=== PATIENT | female | born 1990 | race American Indian/Alaskan Native ===

== ENCOUNTER 2018-03-16 08:15 | Emergency (ER) | payer OTHER ==
[2018-03-16 08:15] VITALS: BMI 20.7
--- NOTE | 2018-03-16 08:31 | ED PDOC ---
HPI: Female Pain Time Seen by Provider: 03/16/18 08:23 History Per: Patient Onset/Duration Of Symptoms: Days (1) Current Symptoms Are (Timing): Still Present Severity: Mild Pain Scale Rating Of: 2 Quality Of Discomfort: Cramping Additional Complaint(s): Mild lower abd cramping assoc with vaginal spotting since this AM. LMP 13 weeks ago. Abnormal Vaginal Bleeding: Yes Past Medical History Vital Signs: Last Vital Signs Temp 99.3 F 03/16/18 08:19 Pulse 120 H 03/16/18 08:19 Resp 20 03/16/18 08:19 BP 120/81 03/16/18 08:19 Pulse Ox 100 03/16/18 08:19 - Medical History PMH: No Chronic Diseases - Family History Family History: States: Unknown Family Hx - Immunization History Hx Tetanus Toxoid Vaccination: No Hx Influenza Vaccination: No Hx Pneumococcal Vaccination: No - Home Medications Home Medications: Ambulatory Orders Medication Instructions Recorded No Known Home Med 09/19/15 - Allergies Allergies/Adverse Reactions: Allergies Allergy/AdvReac Type Severity Reaction Status Date / Time Penicillins Allergy URTICARIA Verified 03/16/18 08:40 Review of Systems Gastrointestinal: Positive for: Abdominal Pain Genitourinary Female: Positive for: Vaginal Bleeding. Negative for: Dysuria, Frequency Physical Exam - Physical Exam Appears: Positive for: Non-toxic, No Acute Distress Gastrointestinal/Abdominal: Positive for: Bowel Sounds, Soft, Tenderness Pelvic Exam: Positive for: External Exam Normal, Blood (scant, cervix closed). Negative for: Tender Adnexa, Tender Uterus - Laboratory Results Result Diagrams: 03/16/18 09:00 - ECG O2 Sat by Pulse Oximetry: 100 Disposition - Clinical Impression Clinical Impression: Threatened miscarriage - Patient ED Disposition Is Patient to be Admitted: No Counseled Patient/Family Regarding: Studies Performed, Diagnosis, Need For Followup - Disposition [facility] Disposition: Routine/Home Disposition Time: 11:03 Condition: FAIR Instructions: Threatened Miscarriage
[2018-03-16 09:18] LABS: BASO % 0.3 % (0.0-2.0); EOS % 0.6 % (0.0-4.0); HEMOGLOBIN 11.9 g/dL (12.0-16.0); LYMPH # 1.6 K/uL (1.0-4.3); LYMPH % 21.8 % (20.0-40.0); MEAN CELL VOLUME 89.3 fl (81.0-99.0); MEAN CORPUSCULAR HEMOGLOBIN 30.6 pg (27.0-31.0); MEAN CORPUSCULAR HGB CONC 34.2 g/dL (33.0-37.0); MEAN PLATELET VOLUME 7.1 fl (7.2-11.7); MONO # 0.6 K/uL (0.0-0.8); MONO % 7.8 % (0.0-10.0); NEUT # 5.1 K/uL (1.8-7.0); NEUT % 69.5 % (50.0-75.0); RBC 3.9 Mil/uL (3.80-5.20); RED CELL DISTRIBUTION WIDTH 15.7 % (11.5-14.5); WHITE BLOOD COUNT 7.4 K/uL (4.8-10.8)
[2018-03-16 11:33] VITALS: BP 125/87; PULSE 99; RESP 18; TEMP 98.6; O2SAT 98
--- NOTE | 2018-03-16 11:38 | US ---
Date of service: 03/16/2018 PROCEDURE: Obstetrical ultrasound examination HISTORY: r/o ectopic COMPARISON: Not available TECHNIQUE: Transabdominal FINDINGS: Ultrasound examination demonstrates a single live intrauterine gestation. The heart rate is 165 beats per minute. A grossly normal quantity of amniotic fluid is visualized. The fetus is in transverse presentation at the time of this examination. An anterior placenta is identified. There are 2 irregular heterogeneously hypoechoic lesions within the placenta, most likely representing venous lakes. These measure approximately 1.4 x 1.5 x 2.4 cm and 1.6 x 2.0 x 2.4 cm. Differential diagnosis includes [place] when GMS. These appear avascular on Doppler interrogation. biometry yields a gestational age of 15 weeks 0 days. DIANNA by ultrasound is 09/07/2018. The cervix is closed and measures 5.0 cm in length. IMPRESSION: Single live intrauterine gestation of approximately 15 weeks 0 days. anatomic evaluation is not performed at this time. Anterior placenta. Two complex likely cystic spaces within the placenta are noted, possibly venous lakes. Follow-up advised. Cervix closed. heart rate 165 beats per minute. No additional abnormality.
== END 2018-03-16 11:18 | disposition home or self-care (01) ==
LOC: H.ER 08:15
DX: O20.0 Threatened abortion (principal); Z3A.15 15 weeks gestation of pregnancy; Z88.0 Allergy status to penicillin

== ENCOUNTER 2018-09-04 08:05 | Emergency (ER) | payer OTHER ==
[2018-09-04 08:26] VITALS: BMI 31.1
[2018-09-04 16:00] VITALS: BP 102/70; PULSE 109; RESP 17; TEMP 98.5; O2SAT 98
== END 2018-09-04 10:30 | disposition home or self-care (01) ==
LOC: H.EROB2 08:05 → H.EROB 08:25 → H.EROB2 10:30
DX: O26.93 Pregnancy related conditions, unspecified, third trimester (principal); R10.2 Pelvic and perineal pain; O26.853 Spotting complicating pregnancy, third trimester; Z3A.38 38 weeks gestation of pregnancy

== ENCOUNTER 2018-09-04 20:38 | Emergency (ER) | payer OTHER ==
[2018-09-04 22:03] VITALS: BMI 30.7
[2018-09-05 03:08] VITALS: BP 132/77; PULSE 106; RESP 16; TEMP 98.1; O2SAT 99
--- NOTE | 2018-09-05 08:58 | OBDCSUM ---
Datetime: 09/04/2018 22:40 Discharged to, Provider: Home Follow up at, Provider: [facility] Disch Instr Activity: Normal activity Disch Instr Diet: Regular Discharge Diagnosis, Provider: False Labor - Undelivered Discharge Time: 09/04/2018 22:40 Follow up [facility], [facility] Referrals: None Datetime: 09/04/2018 10:20 Discharge Diagnosis, Provider: False Labor - Undelivered
--- NOTE | 2018-09-05 08:59 | OBHP ---
Datetime: 09/04/2018 21:45 IP Admit Plan: Observation/Evaluation Admit Comment, IP Provider: 28 yo with IUP @ 38+3 weeks presents to [facility] for evaluation of p ainful contractions. She was previously seen earlier today by her primary OBGYN at [facility] and h ere at [facility] where she was found to be closed on SVE and sent home with labor precautions. Deborah armstrong reports that since being discharged her contractions are much more painful and she reports one epis ode of nausea. Denies active vaginal bleeding or gush of fluid. Endorses good movement. Denies headahce, change in vision, chest pain, shortness of breath, vomiting, dysuria, fevers or chills. ROS: negative except for stated above in HPI. PMD:Patient follows at [facility], last seen this morning. OBHx: 1 x SAB @ 3 wks, 2014 PMHx: Hyperthyroidism (Methimazole 10mg weekly- TSH 0.888) PSHx:Right ear keloid removal 2017 Allergies: Penicillin- rash Medications: PNVs; Methimazole 10mg po weekly. SocialHx: Denies ETOH/smoking/drugs Family History: Denies Labs: HIV: negative; AbsAg: negative; GBS: negative; Rubella: Non-reactive; Gc/Cl: negative; RPR: unknown; ABO: A+; Ab: negative; Quantiferon 18 was negative. PE: Patient in bed - uncomfortable during contractions but able to speak through them. Vitally stable Lungs: No respiratory distress Abdomen: Gravid, non-tender to palpation SVE: with sr. vendor management associate- posterior; 1cm, thick cervix, minimal amount of bloody discharge noted on exa m. Extremities: No lower extremity edema. Non-tender calves. Bedside ultrasound this morning- cephalic presentation Assessment: 28 y/o, , with IUP at 38+3 wks based on DIANNA presented to [facility] for evaluation of painful contractions every 5 minutes. - Observation - Contiue EFM for at least 20 minutes. Cat I, reactive, accelerations 15x15, no decelerations - Patient given labor precautions at this time - Patient to follow up with [facility] clinic in 1 week Case seen and discussed with Dr. Sabina Ram PGY1 OB Hospitalist on-call. With PGY1, I saw and examined this pt. Agree with note. Her questions answered. discharge home...MAHNDO Pelvic Type - PN: Adequate Extremities - PN: Normal Abdomen - PN: Normal Back - PN: Normal Breast - PN: Not Done Lungs - PN: Normal Heart - PN: Normal Thyroid - PN: Not Done Neurologic - PN: Not Done HEENT - PN: Not Done General - PN: Normal FHR - Baseline A Provider: 155 Membranes, Provider: Intact IP Hx Assessment: The History has been Reviewed and is Current EGA AdmitDate IP: 38.3 Vital Signs Provider: Reviewed; Within Normal Limits IP Chief Complaint: Uterine contractions; Maternal discomfort NICHD Variability Prov Fetus A: Moderate 6-25bpm FHR Category Provider Fetus A: Category I NICHD Decel Fetus A IP Provider: None Dilatation, Provider: 1 Effacement, Provider: 0 Station, Provider: -3 Genitourinary Exam: Not Done DTRs - PN: Not Done Datetime: 09/04/2018 08:44 IP Adm Impression: Term, intrauterine ; No Active Labor; Intact Membranes Contraction Comments Provider: occ Pool Provider: Negative NICHD Accel Fetus A IP Provider: [id number]
== END 2018-09-04 23:00 | disposition home or self-care (01) ==
LOC: H.EROB2 20:38
DX: O26.93 Pregnancy related conditions, unspecified, third trimester (principal); R10.2 Pelvic and perineal pain; Z3A.38 38 weeks gestation of pregnancy

== ENCOUNTER 2018-09-05 11:31 | Inpatient (IN) | payer OTHER ==
[2018-09-05 13:49] VITALS: BMI 31.2
[2018-09-05] MEDS ORDERED: Oxytocin 30 UNIT 30 UNITS/500 ML BAG IV ONE ×2 (13:58→14:15)
[2018-09-05] MEDS ORDERED: OXYTOCIN/0.9 % NS 20 UNIT/1,000 ML BAG IV SCH (14:00)
[2018-09-05] MEDS: Lactated Ringer's 1,000 ML IV ONE ×2 (14:15→15:00)
[2018-09-05 14:26] LABS: BASO % 0.3 % (0.0-2.0); HEMOGLOBIN 13.6 g/dL (12.0-16.0); LYMPH # 0.9 K/uL (1.0-4.3); LYMPH % 5.8 % (20.0-40.0); MEAN CELL VOLUME 93.2 fl (81.0-99.0); MEAN CORPUSCULAR HEMOGLOBIN 31.4 pg (27.0-31.0); MEAN CORPUSCULAR HGB CONC 33.6 g/dL (33.0-37.0); MEAN PLATELET VOLUME 8.2 fl (7.2-11.7); MONO # 1.5 K/uL (0.0-0.8); MONO % 9.3 % (0.0-10.0); NEUT # 13.7 K/uL (1.8-7.0); NEUT % 84.6 % (50.0-75.0); NRBC % 0.1 % (0.0-0.0); PLATELET COUNT 186 K/uL (130-400); RBC 4.33 Mil/uL (3.80-5.20); RED CELL DISTRIBUTION WIDTH 14.5 % (11.5-14.5); WHITE BLOOD COUNT 16.1 K/uL (4.8-10.8)
[2018-09-05 15:11] LABS: BANDS 2 % (0-2); LYMPHOCYTE 7 % (20-50); MONOCYTE 12 % (0-10); NEUTROPHIL 79 % (42-75); PLATELET ESTIMATE NORMAL (NORMAL); TOTAL CELLS COUNTED 100
[2018-09-05] MEDS ORDERED: Fentanyl/Bupivacaine HCl 250 ML EPI ONE (15:25)
[2018-09-05] MEDS: Lactated Ringer's 1,000 ML IV SCH ×2 (15:52→19:09)
[2018-09-05] MEDS ORDERED: Lidocaine 1% Inj (20ml) ONE (19:53)
[2018-09-06] MEDS ORDERED: Benzocaine/Menthol SPRAY TOP PRN ×2 (05:47→08:40)
[2018-09-06] MEDS ORDERED: AMPicillin 2 GM in Sodium Chloride 0.9% 100 ML IVPB ONE (05:52)
[2018-09-06] MEDS ORDERED: ceFAZolin 2 GM in Sodium Chloride 0.9% 100 ML IVPB ONE (05:55)
--- NOTE | 2018-09-06 08:11 | OBDS ---
DELIVERY PERSONNEL Delivery Doctor: Magalie Mitchell MD Assistant Therapy Aide: Yadira Carty RN Anesthesiologist: Fidelia Raza Resident: Momo Ram MD MATERNAL INFORMATION Delivery Anesthesia: Local; Epidural Medications in Delivery: pitocin 30units/500ml, lidocaine 2% Estimated Blood Loss (ml): 400 Placenta Cultured: Yes Maternal Complications: Chorioamnionitis; Prolonged Second Stage > 2 Hrs LABOR SUMMARY EDC: 09/15/2018 00:00 No. Babies in Womb: 1 Attempted: No Labor Anesthesia: Intrathecal LABOR INFORMATION Reason for Induction: Not Applicable Complete Dilatation: 09/06/2018 00:45 Oxytocin: N/A Group B Beta Strep: Negative Antibiotics # of Doses: 0 Antibiotics Time of Last Dose: n/a Steroids Given: None Reason Steroids Not Administered: Not Applicable MEMBRANES Membranes Rupture Method: Artificial Rupture of Membranes: 09/05/2018 19:05 Length of Rupture (hrs): 10.17 Amniotic Fluid Color: Light Meconium Amniotic Fluid Amount: Moderate STAGES OF LABOR Stage 2 hrs: 4 Stage 2 min: 30 Stage 3 hrs: 0 Stage 3 min: 4 VAGINAL DELIVERY Episiotomy: None Laceration Extension: Second Degree Laceration Type: Periurethral Laceration Repair: Yes Laceration Repair Note: A 2-0 Vicryl was used to repair the laceration in the usual fashion. Hemosta sis was adequate after repair. Initial Vag Sponge Count: 5 Final Vag Sponge Count: 5 Initial Vag Sharps Count: 3 Final Vag Sharps Count: 3 Sponge Count Correct: Yes Sharps Count Correct: Yes BABY A INFORMATION Delivery Date/Time: 09/06/2018 05:15 Method of Delivery: Vaginal Born in Route : No : N/A Forceps: N/A Vacuum Extraction: N/A Shoulder Dystocia : No SHOULDER DYSTOCIA BABY A Infant Delivery Date/Time: 09/06/2018 05:15 PRESENTATION/POSITION BABY A Presentation: Cephalic Cephalic Presentation: Vertex Breech Presentation: N/A PLACENTA INFORMATION BABY A Placenta Delivery Time : 09/06/2018 05:19 Placenta Method of Delivery: Spontaneous Placenta Status: Delivered SCORES BABY A Heart Rate 1 min: >100 bpm Resp Effort 1 min: Slow, Irregular Reflex Irritability 1 min: Grimace Muscle Tone 1 min: Some Flexion of Extremities Color 1 min: Blue/Pale Resuscitation Effort 1 min: Tactile Stimulation; Oxygen SCORE 1 MIN: 5 Heart Rate 5 min: >100 bpm Resp Effort 5 min: Slow, Irregular Reflex Irritability 5 min: Cough or Sneeze or Pulls Away Muscle Tone 5 min: Some Flexion of Extremities Color 5 min: Body Belva, Extremities Blue Resuscitation Effort 5 min: Tactile Stimulation; Oxygen SCORE 5 MIN: 7 Heart Rate 10 min: >100 bpm Resp Effort 10 min: Good Cry Reflex Irritability 10 min: Cough or Sneeze or Pulls Away Muscle Tone 10 min: Active Motion Color 10 min: Body Belva, Extremities Blue Resuscitation Effort 10 min: Tactile Stimulation; Oxygen SCORE 10 MIN: 9 INFANT INFORMATION BABY A Gestational Age at Delivery: 38.5 Gestational Status: Term Outcome : Liveborn Infant Condition : Fair Infant Sex: Female IDENTIFICATION/MEDS BABY A ID Band Number: [id number] ID Band Location: Left Leg; Left Arm WEIGHT/LENGTH BABY A Infant Birthweight (gms): 4010 Infant Weight (lb): 8 Weight (oz): 13 CORD INFORMATION BABY A No. Cord Vessels: 3 Nuchal Cord : N/A Cord Blood Taken: Yes Suction: Mouth; Nose ASSESSMENT BABY A Complications: Decreased Variability; Extended Tachycardia; Meconium Infant Complications Other: Dr Brenner at bedside @0519 to assess baby. Physical Findings at Delivery: Within Normal Limits Respirations: Intercostal Retractions; Tachypnea Pigskin Trimmer/ALS Called : No Infant Care By: Dr Brenner Transferred To: NICU
[2018-09-07 06:31] LABS: BASO % 0.3 % (0.0-2.0); EOS # 0.2 K/uL (0.0-0.7); EOS % 1.3 % (0.0-4.0); HEMOGLOBIN 10.6 g/dL (12.0-16.0); LYMPH # 2.2 K/uL (1.0-4.3); LYMPH % 16.5 % (20.0-40.0); MEAN CORPUSCULAR HEMOGLOBIN 31.8 pg (27.0-31.0); MEAN CORPUSCULAR HGB CONC 33.5 g/dL (33.0-37.0); MEAN PLATELET VOLUME 7.9 fl (7.2-11.7); MONO # 1.6 K/uL (0.0-0.8); MONO % 12.1 % (0.0-10.0); NEUT # 9.3 K/uL (1.8-7.0); NEUT % 69.8 % (50.0-75.0); RBC 3.32 Mil/uL (3.80-5.20); RED CELL DISTRIBUTION WIDTH 14.6 % (11.5-14.5); WHITE BLOOD COUNT 13.3 K/uL (4.8-10.8)
--- NOTE | 2018-09-07 18:33 | OBPPN ---
Datetime: 09/07/2018 05:58 PP Pain Prov: Within normal limits PP Nausea Prov: Denies PP Flatus Prov: Yes PP BM Prov: No PP Breasts Prov: Not Done PP Heart Prov: Normal PP Lungs Prov: Normal PP Abdomen/Uterus Prov: Normal PP Lochia Prov: Not Done PP Vulva/Perineum Prov: Not Done PP CVA Tenderness Prov: Not Done PP Extremities Prov: Normal PP C/S Incision Prov: Not Applicable PP Progress Prov: Normal PP Impression Prov: Normal progression PP Plan Prov: Continue present management PP Progress Note Prov: S: 28 yo s/p on 09/06/18, PPD1. Pt was seen and examined at bed side this AM. No overnight events. Pain is minimal. Ambulating and tolerating PO diet without difficu lty. Exclusively . Lochia < menses. +Flatus/-BM. Denies dizziness, orthostatic changes, change in vision, palpitations, chest pain, fever, chills, diarrhea, nausea and vomiting. O: VS: Stable overnight GEN: NAD Cardio: S1S2, no murmurs Lungs: clear breath sounds b/l, no wheezing Abdomen: BS+, appropriate tenderness to palpation. Uterus is firm and at the level of the umbilic us. EXT: No edema, calves non-tender NEURO/PSYCH: AAOx3, no grossly focal deficits, preserved affect and mood. H/H: aCBC: 04/28.4 pCBC: PENDING Assessment/Plan: 24 yo S/P on 09/06/18, PPD1. Pt remains afebrile, tolerating pain. -Regular diet -Anticipating d/c on 09/08 -Continue with current management -Encourage and ambulating -Ibuprofen 600mg q6 for pain Case discussed with OB Hospitalist -Ritu Ram PGY1 Attending Note: Patient was discussed with the Resident and i agree with the above assessment IP PP Procedures: None Vital Signs Provider PP: Reviewed; Within Normal Limits
--- NOTE | 2018-09-08 08:42 | OBPPN ---
Datetime: 09/08/2018 06:17 PP Pain Prov: Within normal limits PP Nausea Prov: Denies PP Flatus Prov: Yes PP BM Prov: Yes PP Breasts Prov: Not Done PP Heart Prov: Normal PP Lungs Prov: Normal PP Abdomen/Uterus Prov: Normal PP Lochia Prov: Normal PP Vulva/Perineum Prov: Not Done PP CVA Tenderness Prov: Not Done PP Extremities Prov: Normal PP C/S Incision Prov: Not Applicable PP Progress Prov: Normal PP Impression Prov: Normal progression PP Plan Prov: Continue present management PP Progress Note Prov: S: 28 yo s/p on 09/06/18, PPD2. Pt was seen and examined at bed side this AM. No overnight events. Pain is minimal. Ambulating and tolerating PO diet without difficu lty. Breast and bottle feeding. Lochia < menses. +Flatus/-BM. Denies dizziness, orthostatic changes, change in vision, palpitations, chest pain, fever, chills, diarrhea, nausea and vomiting. O: VS: Stable overnight GEN: NAD Cardio: S1S2, no murmurs Lungs: clear breath sounds b/l, no wheezing Abdomen: BS+, appropriate tenderness to palpation. Uterus is firm and at the level of the umbilic us. EXT: No edema, calves non-tender NEURO/PSYCH: AAOx3, no grossly focal deficits, preserved affect and mood. H/H: aCBC: 04/28.4 pCBC: 10.6/31.5 Assessment/Plan: 24 yo S/P on 09/06/18, PPD2. Pt remains afebrile, tolerating pain. -Regular diet -Anticipating d/c on 09/08 -Continue with current management -Encourage and ambulating -Ibuprofen 600mg q6 for pain Case discussed with Dr Katelyn Ram PGY1 OB Hospitalist Addendum: POD 2 s/p VD, doing well, bottle feeding, wants to breast feed. Continue current care. (ES) IP PP Procedures: None Vital Signs Provider PP: Reviewed; Within Normal Limits
[2018-09-08 23:01] VITALS: BP 105/73; PULSE 91; RESP 19; TEMP 98.4; O2SAT 100
== END 2018-09-08 19:00 | disposition home or self-care (01) | DRG 373 ==
LOC: H.EROB2 11:31 → H.L&D 11:48 → H.EROB2 14:17 → H.OB/GYN 09-06 08:30
PROVIDERS: ADMIT Obstetrics & Gynecology Gynecology; ATTEND Obstetrics & Gynecology Gynecology
PROC: 4A1HXCZ Monitoring of Products of Conception, Cardiac Rate, External Approach (ICD-10-PCS; 2018-09-05)
PROC: 10E0XZZ Delivery of Products of Conception, External Approach (ICD-10-PCS; principal; 2018-09-06)
PROC: 0KQM0ZZ Repair Perineum Muscle, Open Approach (ICD-10-PCS; 2018-09-06)
DX: O76 Abnormality in fetal heart rate and rhythm complicating labor and delivery (principal); O63.1 Prolonged second stage (of labor); O41.1230 Chorioamnionitis, third trimester, not applicable or unspecified; O70.1 Second degree perineal laceration during delivery; O77.0 Labor and delivery complicated by meconium in amniotic fluid; Z3A.38 38 weeks gestation of pregnancy; Z37.0 Single live birth

== ENCOUNTER 2018-09-09 16:14 | Emergency (ER) | payer OTHER ==
[2018-09-09 16:15] VITALS: BMI 31.2
[2018-09-09 16:27] VITALS: TEMP 98.6; O2SAT 100
--- NOTE | 2018-09-09 17:06 | ED PDOC ---
HPI: Female Pain Time Seen by Provider: 09/09/18 16:46 Chief Complaint (Nursing): Female Genitourinary Chief Complaint (Provider): Vaginal bleeding History Per: Patient History/Exam Limitations: no limitations Additional Complaint(s): Pt 3 days s/p vaginal delivery reports > half-dollar sized clot yesterday, no clots since then, no abnormal abdominal pain. Past Medical History Reviewed: Nursing Documentation, Vital Signs Vital Signs: Last Vital Signs Temp 98.6 F 09/09/18 16:24 Pulse 77 09/09/18 16:24 Resp 19 09/09/18 16:24 BP 129/82 09/09/18 16:24 Pulse Ox 100 09/09/18 16:24 - Medical History PMH: Hyperthyroidism (No longer takes meds for it) - Surgical History Surgical History: No Surg Hx - Family History Family History: States: Unknown Family Hx - Social History Current smoker - smoking cessation education provided: No Alcohol: None - Immunization History Hx Tetanus Toxoid Vaccination: No Hx Influenza Vaccination: No Hx Pneumococcal Vaccination: No - Home Medications Home Medications: Ambulatory Orders Medication Instructions Recorded Methimazole 1 tab PO QD7 09/04/18 Pnv No.95/Ferrous Fum/Folic AC 1 each PO DAILY 09/05/18 [ Vitamin Tablet] Docusate [Colace] 100 mg PO BID cap 09/08/18 Ibuprofen [Motrin Tab] 600 mg PO Q6 PRN tab 09/08/18 - Allergies Allergies/Adverse Reactions: Allergies Allergy/AdvReac Type Severity Reaction Status Date / Time Penicillins Allergy RASH Verified 09/05/18 18:51 Review of Systems Constitutional: Negative for: Fever, Chills Cardiovascular: Negative for: Chest Pain, Palpitations Respiratory: Negative for: Cough Genitourinary Female: Positive for: Vaginal Bleeding. Negative for: Vaginal Discharge Skin: Negative for: Rash, Lesions Neurological: Negative for: Headache, Dizziness Physical Exam - Reviewed Nursing Documentation Reviewed: Yes Vital Signs Reviewed: Yes - Physical Exam Appears: Positive for: Well, No Acute Distress Skin: Positive for: Normal Color, Warm, Dry Eye Exam: Positive for: Normal appearance, EOMI, PERRL Cardiovascular/Chest: Positive for: Regular Rate, Rhythm Respiratory: Positive for: Normal Breath Sounds Gastrointestinal/Abdominal: Positive for: Bowel Sounds, Soft, Distended. Negative for: Tenderness Back: Positive for: Normal Inspection Neurologic/Psych: Positive for: Alert, Oriented - ECG O2 Sat by Pulse Oximetry: 100 Medical Decision Making Medical Decision Makin yo female with one episode of vaginal blood clot. - OB consult 17:[address] Zepeda, agrees with discharge home. Disposition - Clinical Impression Clinical Impression: bleeding - Disposition Disposition: Routine/Home Disposition Time: 17:58 Condition: GOOD Additional Instructions: FOLLOW-UP WITH YOUR OB WITHIN 2 DAYS FOR REEVALUATION . Instructions: Bleeding Forms: [facility] (Tajik)
[2018-09-09 19:35] VITALS: BP 126/80; PULSE 72; RESP 18
== END 2018-09-09 18:15 | disposition home or self-care (01) ==
LOC: H.ER 16:14
DX: O72.1 Other immediate postpartum hemorrhage (principal); Z88.0 Allergy status to penicillin